=== PATIENT | female | born 1970 | race Caucasian/White ===

== ENCOUNTER → 2023-12-26 | Outpatient (CLI) | payer BC ==
[2023-12-26 16:21] LABS: HEMOGLOBIN A1c 5.2 % (4.0-6.0)
[2023-12-26 16:39] LABS: FOLATE 7.3 NG/ML (>5.4)
[2023-12-28 22:58] LABS: T P ELECTROPHORESIS SO 7.5 g/dL (6.1-8.1)
== END ==
LOC: M PLALAB 13:17
PROVIDERS: ATTEND Psychiatry & Neurology Neurology
DX: E11.9 Type 2 diabetes mellitus without complications (principal)